=== PATIENT | female | born 1985 | race Caucasian/White ===

== ENCOUNTER 2016-06-19 11:22 | Emergency (ER) | payer OTHER ==
[2016-06-19 13:17] VITALS: BP 125/72
--- NOTE | 2016-06-19 13:19 | UC ---
Throat Pain/Nasal Alek HPI - HPI Summary HPI Summary: Pt presents with c/o generalized malaise, low back ache, chills, fever, sore throat, urinary frequency and urgency X 4 days. Has known exposure to strep throat. - History of Current Complaint Stated Complaint: ST,URINARY,FEVER Time Seen by Provider: 06/19/16 13:04 Hx Obtained From: Patient Hx Last Menstrual Period: 2 wks ago ?: No Onset/Duration: Gradual Onset, Lasting Days - 4 days Severity: Moderate Associated Signs & Symptoms: Positive: Dysphagia, Fever - Allergies/Home Medications Allergies/Adverse Reactions: Allergies Allergy/AdvReac Type Severity Reaction Status Date / Time latex Allergy Itching Uncoded 06/19/16 13:18 Home Medications: Home Medications Ibuprofen TAB* [Advil TAB*] 400 mg PO Q6H PRN 06/19/16 [History Confirmed ] PMH/Surg Hx/FS Hx/Imm Hx Previously Healthy: Yes - Surgical History Surgical History: Yes Surgery Procedure, Year, and Place: [place] Teeth Extraction, Appendectomy, C- Section, Tonsillectomy - Family History Known Family History: Positive: Hypertension - Social History Lives: With Family - daughter positive for strep in last 2 weeks. Alcohol Use: None Substance Use Type: None Smoking Status (MU): Current Some Day Smoker Type: Cigarettes - Immunization History Most Recent Influenza Vaccination: Current for Season Most Recent Tetanus Shot: 2012 [facility] Review of Systems Constitutional: Fever, Chills, Fatigue Skin: Negative Eyes: Negative ENT: Sore Throat Respiratory: Negative Cardiovascular: Negative Gastrointestinal: Negative Genitourinary: Frequency, Urgency Motor: Negative Neurovascular: Negative Musculoskeletal: Negative Neurological: Negative Psychological: Negative All Other Systems Reviewed And Are Negative: Yes Physical Exam Triage Information Reviewed: Yes Appearance: Well-Appearing, Other: - clammy skin Vital Signs: Initial Vital Signs Temp 97.7 F 06/19/16 13:12 Pulse 90 06/19/16 13:12 Resp 16 06/19/16 13:12 BP 125/72 06/19/16 13:12 Pulse Ox 96 06/19/16 13:12 Vital Signs Reviewed: Yes Eye Exam: Normal ENT Exam: Normal Neck exam: Other Neck: Positive: Tenderness @ - right side neck with palpation Respiratory Exam: Normal Cardiovascular Exam: Normal Abdominal Exam: Other Abdomen Description: Positive: CVA Tenderness (R), CVA Tenderness (L) Musculoskeletal Exam: Normal Neurological Exam: Normal Psychological Exam: Normal Skin Exam: Normal Throat Pain/Nasal Course/Dx - Course Course Of Treatment: I discussed with the pt the results of her UA and dicscussed the need to follow up with her PCP regarding these results - Differential Dx/Diagnosis Differential Diagnosis/HQI/PQRI: Tonsillitis, Other - UTI Provider Diagnoses: strep throat. hematuria Discharge - Discharge Plan Condition: Stable Disposition: HOME Prescriptions: Amoxicillin CAP* [Amoxicillin 500 MG CAP*] 500 mg PO Q12H #20 cap Patient Education Materials: Strep Throat (ED), Hematuria (ED) Forms: *Work Release Referrals: Non Staff,Doctor [Primary Care Provider] - 1 Day Additional Instructions: Please follow up with your PCP as soon as possible regarding the finding of Hematuria at todays visit. Please follow up with your PCP or return to clinic as needed.
== END 2016-06-19 13:35 | disposition home or self-care (01) ==
LOC: UCCORT 11:22
DX: J02.0 Streptococcal pharyngitis (principal); R31.9 Hematuria, unspecified; Z72.0 Tobacco use
CPT/HCPCS: 81003; 87086; 87651; 99212; G0463